=== PATIENT | female | born 1950 | race Caucasian/White ===

== ENCOUNTER 2021-04-21 06:25 | Day surgery (SDC) | payer MEDICARE ==
[~2021-04-21] VITALS: Ht 162.6 cm; Wt 75.5 kg
[~2021-04-21 06:25] MED LIST: CARDURA1 MG PO; CLONAZEPAM0.5 MG PO; CYCLOBENZAPRINE10 MG PO; EFFEXOR XR150 MG PO; ESTRADIOL0.5 MG; GABAPENTIN800 MG PO; LEVOTHYROXINE75 MCG PO; METOPROLOL SUC100 MG PO; PREVACID15 MG PO; VERAPAMIL SR240 MG PO; VITAMIN D325 MC2 PO
--- NOTE | 2021-04-21 08:32 | NUR ---
04/21/21 0832 Christi Price 0803 PT ARRIVED IN PACU SLEEPY WITH NO C/O'S. ABD SOFT AND PASSING FLATUS. 0815 AT BEDSIDE TALKING WITH PT. ALL QUESTIONS ANSWERED. 0830 SITTING UP IN BED SIPPING ON JUICE. NO C/O'S.
--- NOTE | 2021-04-21 16:08 | OR ---
[facility] [address], [place] [address] Signed DATE OF OPERATION: 04/21/2021 SURGEON: Erica Jimenez MD PREOPERATIVE DIAGNOSIS: Family history of colon cancer (maternal grandfather and niece). POSTOPERATIVE DIAGNOSIS: Sigmoid diverticulosis. PROCEDURE: Total colonoscopy to cecum. ANESTHESIA: Intravenous sedation fentanyl 150 mcg and Versed 4 mg. INDICATION: This 70-year-old white woman is a patient of Dr. Desean Espinosa and has family history of colon cancer in a maternal grandfather as well as a niece. She underwent Cologuard testing five years ago which was negative and underwent colonoscopy in 2015, which was essentially normal. She is symptom free currently. She is admitted to undergo surveillance colonoscopy, understand the risks of bleeding, infection, and perforation. FINDINGS: The prep was excellent. Complete colonoscopy was undertaken to the cecum without question. Good visualization of the ileocecal valve and appendiceal orifice was noted. She had scattered diverticula of the sigmoid colon. No sign of polyps, colitis, or other abnormality. DESCRIPTION OF PROCEDURE: The patient was brought to the endoscopy suite and placed in lateral decubitus position, given intravenous sedation to the point of slurred speech and nystagmus with full cardiopulmonary monitoring. Digital rectal examination was normal. An Olympus video colonoscope was passed in the rectum and manipulated throughout the colon ultimately intubating the cecum itself. The ileocecal valve and appendiceal orifice were normal. The scope was withdrawn from that point and examination throughout showed no sign of abnormality into the left colon and sigmoid where diverticula were noted, they were not Electronically Signed By: ERICA JIMENEZ MD 04/21/21 1608 PATIENT NAME: SHAYAN FONTAINE OPERATIVE REPORT DATE OF : 52 REPORT #: [id number] PHYSICIAN: ERICA JIMENEZ MD PCP: MAX SOLO MD REPORT IS CONFIDENTIAL AND NOT TO BE RELEASED WITHOUT AUTHORIZATION [facility] [address], [place] [address] Signed extensive. Scope was withdrawn. The rectum was found to be normal. Scope was removed. The patient was taken to the recovery room in good condition. CONCLUDING DIAGNOSIS: Diverticulosis, no evidence of polyps. PLAN: Recommend repeat colonoscopy in 5 to 7 years considering family history of colon cancer in a maternal grandfather and niece. A colonoscopy certainly could be performed sooner if necessary for symptoms of bleeding, diarrhea, constipation. She will return to the ongoing care of Dr. Espinosa. MD ADRIANE Mabry/JESSICA /[id number] cc: Dr. Espinosa Copies: ~ Electronically Signed By: ERICA JIMENEZ MD 04/21/21 1608 PATIENT NAME: SHAYAN FONTAINE OPERATIVE REPORT DATE OF : 52 REPORT #: [id number] PHYSICIAN: ERICA JIMENEZ MD PCP: MAX SOLO MD REPORT IS CONFIDENTIAL AND NOT TO BE RELEASED WITHOUT AUTHORIZATION
== END 2021-04-21 08:41 | disposition home or self-care (01) ==
LOC: DS 06:25 → OPS 06:25 → DS 06:45 → OPS 08:41
PROVIDERS: ATTEND Surgery
PROC: 0DJD8ZZ Inspection of Lower Intestinal Tract, Via Natural or Artificial Opening Endoscopic (ICD-10-PCS; principal; 2021-04-21 06:45)
DX: Z12.11 Encounter for screening for malignant neoplasm of colon (principal); K57.30 Diverticulosis of large intestine without perforation or abscess without bleeding; K21.9 Gastro-esophageal reflux disease without esophagitis; I10 Essential (primary) hypertension; F32.9 Major depressive disorder, single episode, unspecified; E03.9 Hypothyroidism, unspecified; Z80.0 Family history of malignant neoplasm of digestive organs
CPT/HCPCS: 99153; G0500; J2250; J3010; J7121

== ENCOUNTER 2025-07-22 06:54 | Emergency (ER) | payer MEDICARE ==
[~2025-07-22] VITALS: Ht 162.6 cm; Wt 78.0 kg
[2025-07-22] MEDS ORDERED: IBUPROFEN 400 MG TAB PO ONE (07:15)
[2025-07-22] MEDS ORDERED: PENICILLIN V POTASSIUM 500 MG TAB PO ONE (07:15)
[2025-07-22] MEDS ORDERED: PENICILLIN V P500 MG PO (07:21)
[2025-07-22 07:28] VITALS: BP 188/86
== END 2025-07-22 07:28 | disposition home or self-care (01) ==
LOC: ED 06:54
DX: K04.7 Periapical abscess without sinus (principal); I10 Essential (primary) hypertension; Z79.899 Other long term (current) drug therapy; Z88.5 Allergy status to narcotic agent; Z88.6 Allergy status to analgesic agent; Z88.8 Allergy status to other drugs, medicaments and biological substances
CPT/HCPCS: 99282; A9270